=== PATIENT | female | born 1965 | race Two or more races ===

== ENCOUNTER → 2022-09-17 | Day surgery (SDC) | payer OTHER ==
[~2022-09-17] MED LIST: CIPROFLOXACIN 400MG/200ML 200 ML IV ONE; HYDROmorphone HCL 2 MG/ML VL/or syr IV PRN; METOCLOPRAMIDE HCL 5MG/ml INJ 2ml VIAL IV PRN; MIDAZOLAM HCL 2MG/2ML 2ml VIAL (1mg/ml) ONE; MORPHINE SULFATE INJ 2 MG/ml SYRG IV PRN; ONDANSETRON HCL 4 MG/2 ML VIAL ONE; PROPOFOL 10 MG/ML 20 ML IV ONE; SODIUM CHLORIDE LOCK 10 ML ONE; SUCCINYLCHOLINE CHLORIDE 20 MG/ML 10ML VIAL IV ONE; fentaNYL CITRATE 100 MCG/2 ML VL ONE
[2022-09-17 11:17] VITALS: PULSE 82; RESP 15; TEMP 97.9
[2022-09-17 11:54] VITALS: BP 111/58; PULSE 68; RESP 16; O2SAT 100
== END | disposition home or self-care (01) ==
LOC: SUR 07:49
PROVIDERS: ATTEND Urology
DX: N20.0 Calculus of kidney (principal); Z87.891 Personal history of nicotine dependence; Z98.890 Other specified postprocedural states
CPT/HCPCS: 50590; J0330; J0744; J2250; J2405; J2704; J3010